=== PATIENT | female | born 1960 | race Two or more races ===

== ENCOUNTER 2020-08-07 16:13 | Emergency (ER) | payer OTHER ==
[~2020-08-07] VITALS: Ht 160 cm; Wt 72.1 kg
[2020-08-07] MEDS ORDERED: BRILINTA90 MG PO (16:33)
[2020-08-07] MEDS ORDERED: AVAPRO300 MG PO (16:33)
[2020-08-07] MEDS ORDERED: TOPROL XL50 M1 PO (16:33)
[2020-08-07] MEDS ORDERED: JANUVIA50 MG PO (16:33)
[2020-08-07] MEDS ORDERED: LEXAPRO20 MG PO (16:34)
[2020-08-07] MEDS ORDERED: ATORVASTATIN CA20 MG PO (16:34)
[2020-08-07] MEDS ORDERED: CHILDREN'S ASPI81 MG PO (16:34)
[2020-08-07] MEDS ORDERED: SYNTHROID150 MCG PO (16:34)
[2020-08-07] MEDS ORDERED: MACRODANTIN100 M1 PO (18:42)
== END 2020-08-07 18:51 | disposition home or self-care (01) ==
LOC: ER 16:13
DX: N39.0 Urinary tract infection, site not specified (principal); R31.0 Gross hematuria

== ENCOUNTER 2020-12-20 15:57 | Emergency (ER) | payer OTHER ==
[~2020-12-20] VITALS: Ht 160 cm; Wt 73.5 kg
[~2020-12-20 15:57] MED LIST: ATORVASTATIN CA20 MG PO; AVAPRO300 MG PO; BRILINTA90 MG PO; CHILDREN'S ASPI81 MG PO; JANUVIA50 MG PO; LEXAPRO20 MG PO; MACRODANTIN100 M1 PO; SYNTHROID150 MCG PO; TOPROL XL50 M1 PO
== END 2020-12-20 19:20 | disposition home or self-care (01) ==
LOC: ER 15:57
DX: S80.811A Abrasion, right lower leg, initial encounter (principal); S80.01XA Contusion of right knee, initial encounter; S60.212A Contusion of left wrist, initial encounter; S60.211A Contusion of right wrist, initial encounter; W18.09XA Striking against other object with subsequent fall, initial encounter; Y93.89 Activity, other specified; Y92.017 Garden or yard in single-family (private) house as the place of occurrence of the external cause; Y99.8 Other external cause status

== ENCOUNTER 2021-01-01 08:00 | Outpatient (CLI) | payer OTHER | END 2021-01-01 08:30 | disposition home or self-care (01) | LOC: PPH VACUNA 08:00 | PROVIDERS: ATTEND Emergency Medicine Pediatric Emergency Medicine | DX: Z23 Encounter for immunization (principal) ==

== ENCOUNTER 2022-03-04 06:00 | Day surgery (SDC) | payer OTHER ==
[~2022-03-04] VITALS: Ht 160 cm; Wt 72.6 kg
[~2022-03-04 06:00] MED LIST changes: +ELIQUIS2.5 MG PO; +JANUMET 50-5001 EACH PO; +LAMOTRIGINE25 M3 PO; +NORVASC5 MG PO
== END 2022-03-04 13:50 | disposition home or self-care (01) ==
LOC: CIR.AMB 06:00
PROVIDERS: ATTEND Orthopaedic Surgery
DX: M23.231 Derangement of other medial meniscus due to old tear or injury, right knee (principal); M23.261 Derangement of other lateral meniscus due to old tear or injury, right knee; X58.XXXA Exposure to other specified factors, initial encounter; Y93.9 Activity, unspecified; Y92.9 Unspecified place or not applicable; M65.861 Other synovitis and tenosynovitis, right lower leg; M17.11 Unilateral primary osteoarthritis, right knee; S83.001A Unspecified subluxation of right patella, initial encounter; M22.41 Chondromalacia patellae, right knee; Z88.2 Allergy status to sulfonamides; Z88.8 Allergy status to other drugs, medicaments and biological substances; I10 Essential (primary) hypertension; E11.9 Type 2 diabetes mellitus without complications

== ENCOUNTER 2023-11-13 17:34 | Inpatient (IN) | payer OTHER ==
[~2023-11-13] VITALS: Ht 160 cm; Wt 68.0 kg
--- NOTE | 2023-11-13 17:36 | NUR ---
PACIENTE ALERTA Y ORIENTADA X 3. REFIERE IVONNE SEMANA CON DOLOR AL ORINAR, REFIERE ESTAR ORINANDO MUCHAS VECES GLENN POQUITO E INDICA SMILEY EN ORINA.
[2023-11-13] MEDS ORDERED: CARDURA8 MG PO (17:40)
[2023-11-13] MEDS ORDERED: CIPROFLOXACIN IN 5 % DEXTROSE 400 MG/200 ML PIGGYBAG IV SCH (18:26)
[2023-11-13] MEDS ORDERED: KETOROLAC TROMETHAMINE 60 MG VIAL IM ONE ×2 (18:30→18:36)
[2023-11-13] MEDS ORDERED: TAMSULOSIN HCL 0.4 MG CAP PO ONE ×2 (18:30→18:35)
[2023-11-13] MEDS ORDERED: FAMOtidine 10 MG/ML (4ML VIAL) IV ONE (18:30)
[2023-11-13] MEDS ORDERED: 0.9 % SODIUM CHLORIDE 1,000 ML IV ONE (18:30)
[2023-11-13] MEDS ORDERED: CIPROFLOXACIN IN 5 % DEXTROSE 400 MG/200 ML PIGGYBAG IV ONE (18:36)
[2023-11-13] MEDS ORDERED: FAMOTIDINE/PF 20 MG/2 ML VIAL ONE (18:36)
--- NOTE | 2023-11-13 19:06 | NUR ---
SE LE ORIENTA A PTE SOBRE TRATAMIENTO E INSTRUCCIONES A SEGUIR, KARINE REFIERE ENTENDER. SE COLECTA MUESTRAS, SE CANALIZA Y SE ADMINISTRA MEDICAMENTO JESÚS ORDEN MEDICA
[2023-11-13 19:30] LABS: HEMATOCRIT 33.8 % (36.0-45.00); HEMOGLOBIN 11.6 g/dL (12.0-15.00); MEAN CELL VOLUME 88.7 fL (80.00-100.00); MEAN CORPUSCULAR HEMOGLOBIN 30.6 pg (27.00-32.0); MEAN CORPUSCULAR HGB CONC 34.5 g/dl (32.0-36.0); PLATELET COUNT 214 K/uL (150-450); RED BLOOD COUNT 3.81 M/uL (4.00-6.00); RED CELL DISTRIBUTION WIDTH 12.7 % (11.5-14.5)
[2023-11-13 19:51] LABS: PH,URINE 5.5 (5.0-8.0); URINE APPEARANCE Cloudy; URINE BILIRRUBIN Negative (NEGATIVE); URINE BLOOD Large; URINE COLOR Yellow; URINE GLUCOSE Negative (NEGATIVE); URINE KETONE Negative (NEGATIVE); URINE LEUKOCYTE Moderate; URINE NITRATE Negative; URINE UROBILINOGEN 0.2 E.U./dl
[2023-11-13 19:55] LABS: URINE BACTERIA 84.4 uL (0.0-1933); URINE CAST 5.95 uL (0.0-1.40); URINE EPITHELIAL CELLS 6.9 uL (0.0-38.8); URINE RBC 290.1 uL (0.0-20.8); URINE WBC 743.1 uL (0.0-23.2)
[2023-11-13 19:55] LABS: INR 1.07; PARTIAL THROMBOPLASTIN TIME 30.2 SECONDS (22.0-34.0); PROTHROMBIN TIME 11.6 SECONDS (9.0-11.5)
[2023-11-13 20:03] LABS: ALBUMIN 3.4 gm/dL (3.4-5.0); BILIRUBIN TOTAL 0.45 mg/dL (0.3-1.2); CALCIUM 8.7 mg/dL (8.5-10.1); CREATININE SERUM 2.93 mg/dL (0.55-1.02); GFR 16.25; GLOBULINA 3.4 G/DL (2.4-3.5); POTASSIUM 5.05 mEq/L (3.5-5.1); TOTAL PROTEIN 6.8 gm/dL (6.4-8.2)
[2023-11-13 20:09] LABS: URINE PROTEIN 300 (NEGATIVE)
[2023-11-13 20:15] LABS: C-REACTIVE PROTEIN 0.49 MG/DL (0.00-0.29)
[2023-11-13 20:26] LABS: ERYTHROCYTE SEDIMENTATION RATE 27 mm/hr
[2023-11-13] MEDS ORDERED: 0.9 % SODIUM CHLORIDE 1,000 ML IV SCH (20:30)
[2023-11-13] MEDS ORDERED: ACETAMINOPHEN 500 MG GEL..CAP PO PRN (20:45)
[2023-11-13] MEDS ORDERED: INSULIN LISPRO 1,000 UNIT/10 ML UNITS SUBCUTANEO PRN (20:45)
[2023-11-13] MEDS ORDERED: DEXTROSE 50 % IN WATER 0.5 G/ML DISP.SYRIN IV PRN (20:45)
[2023-11-14] MEDS ORDERED: LEVOTHYROXINE SODIUM 150 MCG TABLET PO SCH (06:00)
[2023-11-14 07:13] VITALS: BP 147/81; O2SAT 98
[2023-11-14 08:18] LABS: HEMATOCRIT 32.1 % (36.0-45.00); HEMOGLOBIN 11.2 g/dL (12.0-15.00); MEAN CELL VOLUME 88.3 fL (80.00-100.00); MEAN CORPUSCULAR HEMOGLOBIN 30.9 pg (27.00-32.0); PLATELET COUNT 184 K/uL (150-450); RED BLOOD COUNT 3.63 M/uL (4.00-6.00); RED CELL DISTRIBUTION WIDTH 12.5 % (11.5-14.5)
[2023-11-14] MEDS ORDERED: DOXAZOSIN MESYLATE 8 MG TABLET PO SCH ×2 (09:00→21:00)
[2023-11-14] MEDS ORDERED: ATORVASTATIN CALCIUM 20 MG TABLET PO SCH (09:00)
[2023-11-14] MEDS ORDERED: FAMOTIDINE/PF 20 MG in 0.9 % SODIUM CHLORIDE 8 ML IV PUSH SCH (09:00)
[2023-11-14] MEDS ORDERED: IRBESARTAN 300 MG TABLET PO SCH (09:00)
[2023-11-14] MEDS ORDERED: PATIENTS OWN MEDICATION (MEDICAMENTO EN PISO) PO SCH (09:00)
[2023-11-14] MEDS ORDERED: CEFTRIAXONE SODIUM 2,000 MG in 0.9 % SODIUM CHLORIDE 100 ML IV SCH (09:00)
[2023-11-14 09:04] LABS: BILIRUBIN TOTAL 0.14 mg/dL (0.3-1.2); CALCIUM 8.6 mg/dL (8.5-10.1); CREATININE SERUM 2.86 mg/dL (0.55-1.02); GFR 16.71; GLOBULINA 3.1 G/DL (2.4-3.5); POTASSIUM 4.73 mEq/L (3.5-5.1); TOTAL PROTEIN 6.1 gm/dL (6.4-8.2)
[2023-11-14] MEDS ORDERED: FAMOTIDINE/PF 20 MG/2 ML VIAL ONE (09:18)
[2023-11-14 09:21] VITALS: BP 140/80; BP 172/90; O2SAT 100; O2SAT 99
[2023-11-14] MEDS ORDERED: PANTOPRAZOLE SODIUM 40 MG TABLET.DR PO SCH (17:56)
[2023-11-14] MEDS ORDERED: RINGERS SOLUTION,LACTATED 1,000 ML IV SCH (18:00)
[2023-11-14] MEDS ORDERED: AMLODIPINE BESYLATE 2.5 MG TABLET PO SCH (18:07)
[2023-11-14 19:15] VITALS: BP 148/86
[2023-11-15 04:06] VITALS: BP 144/74; O2SAT 99
[2023-11-15 10:20] VITALS: BP 141/83
[2023-11-15 10:28] LABS: HEMATOCRIT 31.8 % (36.0-45.00); MEAN CELL VOLUME 88.4 fL (80.00-100.00); MEAN CORPUSCULAR HEMOGLOBIN 30.4 pg (27.00-32.0); MEAN CORPUSCULAR HGB CONC 34.4 g/dl (32.0-36.0); PLATELET COUNT 186 K/uL (150-450); RED CELL DISTRIBUTION WIDTH 12.6 % (11.5-14.5)
[2023-11-15 11:26] LABS: CALCIUM 8.3 mg/dL (8.5-10.1); CREATININE SERUM 2.83 mg/dL (0.55-1.02); GFR 16.91; MAGNESIUM 2.1 mg/dL (1.8-2.4); PHOSPHOROUS 3.7 mg/dL (2.5-4.9); POTASSIUM 5.04 mEq/L (3.5-5.1)
[2023-11-15 19:21] VITALS: BP 151/80; O2SAT 100
[2023-11-16 02:20] VITALS: BP 121/77; O2SAT 93
[2023-11-16 09:39] VITALS: BP 129/74
[2023-11-16] MEDS ORDERED: ASPIRIN 81 MG TABLET.EC PO SCH (12:00)
[2023-11-16] MEDS ORDERED: AMLODIPINE BESYLATE 5 MG TABLET PO SCH (12:00)
[2023-11-16] MEDS ORDERED: APIXABAN 2.5 MG TABLET PO SCH (17:00)
[2023-11-16] MEDS ORDERED: MONTELUKAST SODIUM 10 MG TABLET PO SCH (17:06)
[2023-11-16] MEDS ORDERED: BENZONATATE 100 MG CAPSULE PO PRN (17:15)
[2023-11-16] MEDS ORDERED: LEVALBUTEROL HCL 0.63 MG/3 ML SOLUTION IH SCH (18:00)
[2023-11-16] MEDS ORDERED: AZITHROMYCIN 500 MG in DEXTROSE 5 % IN WATER 250 ML IV SCH (20:11)
[2023-11-16 20:42] VITALS: BP 160/85; O2SAT 98
[2023-11-16] MEDS ORDERED: METHYLPREDNISOLONE SOD SUCC 40 MG VIAL IV SCH (21:00)
[2023-11-16] MEDS ORDERED: AZITHROMYCIN 500 MG VIAL IV ONE (22:10)
[2023-11-17] MEDS ORDERED: IPRATROPIUM BROMIDE 0.5 MG/2.5 ML AMPUL.NEB IH SCH (01:00)
[2023-11-17 03:04] VITALS: BP 149/86; O2SAT 95
[2023-11-17 07:46] LABS: HEMATOCRIT 31.5 % (36.0-45.00); HEMOGLOBIN 10.9 g/dL (12.0-15.00); MEAN CELL VOLUME 88.5 fL (80.00-100.00); MEAN CORPUSCULAR HEMOGLOBIN 30.6 pg (27.00-32.0); MEAN CORPUSCULAR HGB CONC 34.5 g/dl (32.0-36.0); PLATELET COUNT 190 K/uL (150-450); RED BLOOD COUNT 3.55 M/uL (4.00-6.00); RED CELL DISTRIBUTION WIDTH 12.6 % (11.5-14.5)
[2023-11-17 08:39] LABS: ALBUMIN 2.8 gm/dL (3.4-5.0); BILIRUBIN TOTAL 0.32 mg/dL (0.3-1.2); CREATININE SERUM 2.33 mg/dL (0.55-1.02); GFR 21.17; GLOBULINA 3.4 G/DL (2.4-3.5); PHOSPHOROUS 3.2 mg/dL (2.5-4.9); POTASSIUM 5.09 mEq/L (3.5-5.1); TOTAL PROTEIN 6.2 gm/dL (6.4-8.2)
[2023-11-17 09:52] VITALS: BP 137/81
[2023-11-17 16:00] VITALS: BP 145/83
[2023-11-18 01:31] VITALS: BP 148/79; O2SAT 95
[2023-11-18 08:00] VITALS: BP 150/79; O2SAT 99
[2023-11-18] MEDS ORDERED: INSULIN NPH HUM/REG INSULIN HM 1,000 UNIT/10 ML UNITS SUBCUTANEO SCH (08:00)
[2023-11-18] MEDS ORDERED: SYMBICORT 80/10.2 GM IH (11:45)
[2023-11-18] MEDS ORDERED: ELIQUIS2.5 MG PO (11:46)
[2023-11-18] MEDS ORDERED: INTESTINEX680 M1 PO (11:46)
[2023-11-18] MEDS ORDERED: LIPITOR20 MG PO (11:46)
[2023-11-18] MEDS ORDERED: CEFDINIR300 MG PO (11:46)
[2023-11-18] MEDS ORDERED: AMLODIPINE BESYL5 MG PO (11:46)
[2023-11-18] MEDS ORDERED: MONTELUKAST SOD10 MG PO (11:47)
[2023-11-18] MEDS ORDERED: DOXAZOSIN MESYLA8 MG PO (11:47)
[2023-11-18] MEDS ORDERED: AVAPRO300 MG PO (11:47)
[2023-11-18] MEDS ORDERED: BENZONATATE100 MG PO (11:47)
== END 2023-11-18 15:17 | disposition home or self-care (01) | DRG 690 ==
LOC: ER 17:35 → MEDJ 21:18 → SURG 11-18 00:16
PROVIDERS: General Practice; ADMIT Internal Medicine; ATTEND Internal Medicine
PROC: BT43ZZZ Ultrasonography of Bilateral Kidneys (ICD-10-PCS; principal; 2023-11-13)
PROC: BW21ZZZ Computerized Tomography (CT Scan) of Abdomen and Pelvis (ICD-10-PCS; 2023-11-14)
PROC: 3E0F7GC Introduction of Other Therapeutic Substance into Respiratory Tract, Via Natural or Artificial Opening (ICD-10-PCS; 2023-11-16)
DX: N39.0 Urinary tract infection, site not specified (principal); Q61.3 Polycystic kidney, unspecified; N17.9 Acute kidney failure, unspecified; R31.0 Gross hematuria; I13.10 Hypertensive heart and chronic kidney disease without heart failure, with stage 1 through stage 4 chronic kidney disease, or unspecified chronic kidney disease; I25.10 Atherosclerotic heart disease of native coronary artery without angina pectoris; E11.65 Type 2 diabetes mellitus with hyperglycemia; R05.9 Cough, unspecified; J45.998 Other asthma; E11.22 Type 2 diabetes mellitus with diabetic chronic kidney disease; N18.30 Chronic kidney disease, stage 3 unspecified; E03.9 Hypothyroidism, unspecified; Z79.84 Long term (current) use of oral hypoglycemic drugs; Z95.818 Presence of other cardiac implants and grafts; Z88.2 Allergy status to sulfonamides; Z88.3 Allergy status to other anti-infective agents

== ENCOUNTER → 2024-03-03 | Outpatient (CLI) | payer OTHER ==
[~2024-03-03] MED LIST changes: +AMLODIPINE BESYL5 MG PO; +BENZONATATE100 MG PO; +CARDURA8 MG PO; +CEFDINIR300 MG PO; +DOXAZOSIN MESYLA8 MG PO; +INTESTINEX680 M1 PO; +LIPITOR20 MG PO; +MONTELUKAST SOD10 MG PO; +SYMBICORT 80/10.2 GM IH
== END | disposition home or self-care (01) ==
LOC: RAD 14:52
PROVIDERS: ATTEND Orthopaedic Surgery
DX: M25.572 Pain in left ankle and joints of left foot (principal); M79.672 Pain in left foot